=== PATIENT | female | born 1995 | race Caucasian/White ===

== ENCOUNTER 2019-08-08 18:05 | Inpatient (IN) | payer OTHER ==
[2019-08-08] MEDS ORDERED: Dinoprostone* 10 MG VAG.SUPP VAGINAL ONE (19:00)
[2019-08-08] MEDS ORDERED: Buffered Lidocaine 1% SYRIN* 1 ML/SYRINGE INTRADERM ONE (19:18)
[2019-08-08] MEDS ORDERED: Lactated Ringers 1000 ML Bag* 1,000 ML IV ONE (19:18)
--- NOTE | 2019-08-08 19:26 | HP ---
General Information - Reason for Visit Term for induction of labor for gestational hypertension - General Information Maternal Age: 24 Grav: 1 Para: 0 SAB: 0 IEA: 0 Estimated Due Date: 08/14/19 Determined By: LMP Maternal Blood Type and Rh: A Positive - Results this Serology/RPR Result: Non-Reactive Rubella Result: Immune HBsAg Result: Negative HIV Result: Negative GBS Culture Result: Negative Past Medical History Delivery History: See Records Delivery History Comment: No previous pregnancies Pertinent Past Medical History: Non-Contributory Pertinent Past Surgical History: See Records Past Surgical History Comment: Removal of cyst 2010 Pertinent Family History: See Records Family History Comment: Rectal cancer colon cancer diabetes [place] - Antepartal Records Antepartal Records: Reviewed, Complicated by: - HTN, mild anemia Review of Systems Constitutional: Comfortable CV Complaint: No Respiratory: Shortness of Breath: No Gastrointestinal: No Nausea/Vomiting, Normal Bowel Movement Genitourinary: No Dysuria, No Bleeding, No Leaking Fluid Musculoskeletal: No Complaint Neurological: No Headache, No Visual Changes Movement: Normal Exam Allergies/Adverse Reactions: Allergies No Known Allergies Allergy (Unverified 07/12/15 07:36) BP 141/87 T 98.5 HR 121 RR 18 O2 100 - Measurements Height: 5 ft 2 in Weight: 198 lb Weight in lbs: [phone] Body Mass Index (BMI): 36.2 Pre- Weight: 169 lb Weight Gained This : 29 lbs and 0 ozs - Exam Breast: Breast Exam Deferred CVA: No CVA Tenderness Extremities: No Edema Heart: Normal Rhythm/Heart Sounds HEENT: No Significant Findings Lungs: Clear Bilaterally Rectal: Rectal Exam Deferred Reflexes: DTR 2+, - - no clonus Thyroid: - - WNL @ entry to care - Abdominal Exam Abdomen Exam: Non-Tender, Fundal Height Consistent with Dates - Ultrasound/Biophysical Profile Ultrasound Status: Not Done Targeted Exam Findings Estimated Weight: 8lb Cervical Exam: Fingertip Effacement: 50% Station: -2 Presenting Part: Vertex Membrane Status: Intact Bleeding/Discharge: None EFM Findings - External Monitor Findings Baseline Heart Rate: 135 External Monitor Findings: Accelerations Present, No Pattern of Variable or Late Decelerations, Variability Moderate Contractions: Regular, Mild - Patient not feeling ctx, < 45 Seconds Contraction Frequency: q 4-6 minuts Assessment/Plan - Assessment IUP @ 39+1 weeks gestation. Gestational hypertension. Intact membranes. No evidence acidemia. - Obstetrical Risk Factors Obstetrical Risk Factors: Gestational Hypertension - Plan Plan: Induction, Cervical Ripening, Admit - Anticipate Vaginal Delivery Plan Comment: Admit to L&D. PARQ discussion cervidil for cervical ripening; patient in agreement. Questions answered re process of IOL. Reviewed meds for sleep or pain ; agrees to PRN Vistaril. - Date/Time of Admission Date of Admission: 08/08/19 Time of Admission: 18:44
[2019-08-08 19:32] LABS: Urine Benzodiazepine Screen None Detected (None Detect); Urine Opiates Screen None Detected (None Detect)
[2019-08-08] MEDS ORDERED: Lactated Ringers 1000 ML Bag* 1,000 ML IV SCH (20:00)
[2019-08-08] MEDS ORDERED: hydrOXYzine HCL TAB* 50 MG PO ONE (20:30)
[2019-08-09 01:28] LABS: ABS Basophils 0.1 10^3/ul (0-0.2); ABS Eosinophils 0.1 10^3/ul (0-0.6); ABS Lymphocytes 4.7 10^3/ul (1.0-4.8); ABS Monocytes 1.2 10^3/ul (0-0.8); ABS Neutrophils 10.7 10^3/ul (1.5-7.7); Eosinophil % 0.8 %; Hematocrit 34 % (35-47); Hemoglobin 11.6 g/dL (12.0-16.0); Lymphocyte % 28.3 %; Mean Corpuscular HGB Conc 34 g/dL (31-36); Mean Corpuscular Hemoglobin 28 pg (27-31); Mean Corpuscular Volume 82 fL (80-97); Mean Platelet Volume 8.9 fL (7.4-10.4); Nucleated Red Blood Cells % 0.1; Platelet Count 176 10^3/uL (150-450); Red Blood Count 4.14 10^6 /uL (3.70-4.87); Red Cell Distribution Width 15 % (10-15); White Blood Count 16.8 10^3/uL (3.5-10.8)
[2019-08-09] MEDS ORDERED: OBEPIDURAL* 250 ML EPIDURAL ONE (04:08)
--- NOTE | 2019-08-09 04:45 | PN ---
Progress Note - Progress Note Date of Service: 08/09/19 Note: S: Spontaneous rupture of membranes approx 0100, ctx picked up and cervidil removed approx 0300. Patient reports ctx now "one on top of another" and desires pain relief. Was in tub for a time with some relief but would like to discuss epidural. O: VE deferred at patient preference. Last exam by RN 2cm/75/high FHT 135 UCs approx q 2-4 min on last monitoring and by observation VSS A: IUP @ 39+2 weeks gestation for induction of labor for GHTN No evidence acidemia Membranes ruptured, fluid clear P: PARQ discussion considering IV meds vs epidural as dilation still early. Patient strongly prefers epidural; procedure reviewed and anesthesia paged to unit.
[2019-08-09] MEDS ORDERED: Lactated Ringers 1000 ML Bag* 1,000 ML IV ONE (05:21)
[2019-08-09] MEDS ORDERED: Sodium Citrate/Citric Acid* 15 ML UDC PO PRN (05:21)
[2019-08-09] MEDS ORDERED: Phenylephrine 40 MCG/ML SYRINGE IV PUSH PRN ×2 (05:21)
[2019-08-09] MEDS ORDERED: OBEPIDURAL* 250 ML EPIDURAL SCH (06:00)
[2019-08-09] MEDS ORDERED: Lactated Ringers 1000 ML Bag* 1,000 ML IV SCH ×2 (06:00→17:00)
--- NOTE | 2019-08-09 08:47 | PN ---
Progress Note - Progress Note Date of Service: 08/09/19 Note: S: Spontaneous rupture of membranes approx 0100 Cervidil removed approx 0300 CEI infusing with breakthrough pain noted on right-side Aware of contractions. Denies rectal pressure, urge to push. O: BP 123/78 FHR: 130, +accels, no decels Ctx: 2-3, palpate strong, good resting tone FHT 135, +accels, no decels VE: 9.5/100/0, clear fluid A: IUP @ 39+2 weeks gestation for induction of labor for GHTN BP stable and WNL Category I - no evidence acidemia Regular contractions P: VE in 2 hrs or PRN Anticipate progression to complete and
[2019-08-09] MEDS ORDERED: Oxytocin in LR* 20 UNITS/1,000 ML BAG IVPB SCH ×2 (09:00→17:00)
--- NOTE | 2019-08-09 10:27 | PN ---
Progress Note - Progress Note Date of Service: 08/09/19 Note: S: Spontaneous rupture of membranes approx 0100 CEI infusing with breakthrough pain noted on right-side Aware of contractions. Reports rectal pressure and shaking. O: Ctx: 2-3, palpate strong, good resting tone FHT 135, +accels, no decels VE: 10/100/+1, clear fluid A: IUP @ 39+2 weeks gestation for induction of labor for GHTN BP stable and WNL Category I - no evidence acidemia Regular contractions P: Will prepare pt to start pushing Anticipate
[2019-08-09] MEDS ORDERED: Witch Hazel PAD* JAR ONE (15:46)
[2019-08-09] MEDS ORDERED: Dibucaine 1% 28.35 GM TUBE ONE (15:46)
[2019-08-09] MEDS ORDERED: Dibucaine 1% 28.35 GM TUBE PR PRN (16:30)
[2019-08-09] MEDS ORDERED: Witch Hazel PAD* JAR TOPICAL PRN (16:30)
[2019-08-09] MEDS ORDERED: Glycerin ADULT SUPP PR PRN (16:30)
[2019-08-09] MEDS ORDERED: Acetaminophen TAB* 325 MG PO PRN (16:30)
--- NOTE | 2019-08-09 16:44 | PROCNOTE ---
[facility] OB: Delivery Note - Delivery A Date of : 08/09/19 Time of : 15:30 [place] Sex: Male Weight at : 8 lb 3 oz Score 1 Minute: 9 Score 5 Minutes: 9 Gestational Age in Weeks and Days at Delivery: 39 Weeks and 2 Days Delivery Method: Spontaneous Vaginal Labor: Induced Did Patient attempt ?: N/A, No Previous Amniotic Fluid: Clear Estimated Blood Loss: 300 Anesthesia/Analgesia: CEI for Labor Delivered By: Natividad Fitch Nursery Level of Nursery: Regular/Bedside - Perineum Perineal Injury: 2nd Degree Perineal Injury Comment: Left labial Perineal Repair: By Delivering Practioner - Events Delivery Events of Note: Pitocin During Labor, Supplemental O2 to Mother, Pushed > 3 Hours Delivery Events of Note Comment: prolonged 2nd stage - Risk for Falls Other Risk for Falls: none - Additional Delivery Notes Additional Delivery Notes: Pt presented to L&D for an IOL for GHTN. She was admitted on 08/07 and a cervidil was placed. Following SROM and active labor, pt progressed to complete and complete. Prolonged second stage of labor despite strong maternal effort. MD JUAN F was called to the bedside to assess the feasibility of VAVD. Pt continued to progress and was able to have a normal spontaneous vertex delivery of live male, 8lbs 3oz and Apgars 9/9. Delivered left occipital-anterior (PATO), no nuchal cord, terminal meconium noted. Body delivered without difficulty. Baby placed on mothers abdomen. Cord clamped and cut by FOB after pulsations ceased. Placenta delivered spontaneously via cho, appears intact, 3vc. Pitocin given via IVPB for active management of 3rd stage. Perineum and vagina inspected - left labial abrasions noted and second degree laceration. Both repaired under local anesthesia with CEI infusing. Anatomy restored, lacerations hemostatic. Considerable edema of the perineum noted. EBL 300mL. Blood pressures stable throughout. Mom and baby stable at time of note. Baby attempting to breastfeed.
[2019-08-09] MEDS: Ibuprofen TAB* 600 MG PO SCH (17:57)
[2019-08-09] MEDS: Docusate CAP* 100 MG PO SCH (19:33)
[2019-08-09] MEDS: Simethicone TAB* 80 MG TAB.CHEW PO SCH (19:45)
[2019-08-10] MEDS: Ibuprofen TAB* 600 MG PO SCH ×4 (01:29→18:37)
[2019-08-10 06:20] LABS: ABS Basophils 0.1 10^3/ul (0-0.2); ABS Eosinophils 0.1 10^3/ul (0-0.6); ABS Lymphocytes 3.1 10^3/ul (1.0-4.8); ABS Monocytes 1.4 10^3/ul (0-0.8); ABS Neutrophils 16.8 10^3/ul (1.5-7.7); Eosinophil % 0.3 %; Hematocrit 28 % (35-47); Hemoglobin 9.6 g/dL (12.0-16.0); Lymphocyte % 14.3 %; Mean Corpuscular HGB Conc 34 g/dL (31-36); Mean Corpuscular Hemoglobin 28 pg (27-31); Mean Corpuscular Volume 83 fL (80-97); Mean Platelet Volume 8.4 fL (7.4-10.4); Platelet Count 164 10^3/uL (150-450); Red Cell Distribution Width 15 % (10-15); White Blood Count 21.4 10^3/uL (3.5-10.8)
[2019-08-10] MEDS: Ferrous Gluconate TAB* 324 MG TAB PO SCH ×2 (08:48→20:24)
[2019-08-10] MEDS: Docusate CAP* 100 MG PO SCH ×3 (08:48→20:24)
[2019-08-10] MEDS: Simethicone TAB* 80 MG TAB.CHEW PO SCH ×5 (08:49→20:57)
[2019-08-11] MEDS: Ibuprofen TAB* 600 MG PO SCH ×3 (01:31→08:04)
[2019-08-11 07:53] VITALS: BP 129/76
[2019-08-11] MEDS: Docusate CAP* 100 MG PO SCH (08:03)
[2019-08-11] MEDS: Ferrous Gluconate TAB* 324 MG TAB PO SCH (08:03)
[2019-08-11] MEDS ORDERED: Oxytocin in LR* 20 UNITS/1,000 ML BAG IVPB SCH (09:00)
== END 2019-08-11 13:10 | disposition home or self-care (01) | DRG 807 ==
LOC: MCHOBOUT 18:05 → MCHOB 18:44
PROVIDERS: ADMIT Midwife; ATTEND Advanced Practice Midwife
PROC: 4A1HXCZ Monitoring of Products of Conception, Cardiac Rate, External Approach (ICD-10-PCS; 2019-08-08)
PROC: 10E0XZZ Delivery of Products of Conception, External Approach (ICD-10-PCS; principal; 2019-08-09)
PROC: 0KQM0ZZ Repair Perineum Muscle, Open Approach (ICD-10-PCS; 2019-08-09)
PROC: 0UQMXZZ Repair Vulva, External Approach (ICD-10-PCS; 2019-08-09)
PROC: 3E0P7VZ Introduction of Hormone into Female Reproductive, Via Natural or Artificial Opening (ICD-10-PCS; 2019-08-09)
PROC: 3E033VJ Introduction of Other Hormone into Peripheral Vein, Percutaneous Approach (ICD-10-PCS; 2019-08-09)
DX: O13.4 Gestational [pregnancy-induced] hypertension without significant proteinuria, complicating childbirth (principal); Z37.0 Single live birth; O70.1 Second degree perineal laceration during delivery; O99.02 Anemia complicating childbirth; D64.9 Anemia, unspecified; O77.0 Labor and delivery complicated by meconium in amniotic fluid; O63.1 Prolonged second stage (of labor); Z3A.39 39 weeks gestation of pregnancy
CPT/HCPCS: 36415; 80307; 85025; 86850; 86900; 86901; A9270-GY; G0480